=== PATIENT | female | born 1970 ===

== ENCOUNTER 2018-07-25 17:32 | Emergency (ER) | payer BC ==
[2018-07-25 19:00] VITALS: BP 123/68
--- NOTE | 2018-07-25 19:55 | UC ---
Abdominal Pain Female HPI - HPI Summary HPI Summary: Patient presents to urgent care reporting 24 hours of progressive left lower quadrant pain. Patient states yesterday was a dull ache suprapubic to her left side. Patient's itches a little bit of nausea but no vomiting. Patient took Motrin with good improvement of pain. Patient denies dysuria, hematuria. No diarrhea. Patient with decreased appetite but did force herself to eat today. Patient with a history of diverticulitis and states this feels similar. Patient states her last episode of diverticulitis was approximately 18 months ago. Patient incidentally has an appointment tomorrow with her new primary care provider that was previously scheduled. Patient states she waited "2" once before for antibiotics instead/came today. Patient denies any back pain. Patient states this feels similar to her past experience of diverticulitis. Patient's medications reviewed this visit. - History of Current Complaint Chief Complaint: UCAbdominalPain Stated Complaint: NAUSEA/ABD DISCOMFORT Time Seen by Provider: 07/25/18 19:54 Hx Obtained From: Patient Hx Last Menstrual Period: 07/04/18 Onset/Duration: Gradual Onset Pain Intensity: 2 Allergies/Adverse Reactions: Allergies Allergy/AdvReac Type Severity Reaction Status Date / Time ciprofloxacin [From Cipro] Allergy Swelling Verified 07/25/18 19:01 Of Face,Lips,& Throat, hives erythromycin base AdvReac Nausea, Verified 07/25/18 19:01 diarrhea seasonal/cats Allergy Sneezing; Uncoded 07/25/18 19:03 wheezing with cat exposure Home Medications: Home Medications Escitalopram Oxalate [Lexapro] 10 mg PO QPM 07/25/18 [History Confirmed 07/25/18 ] Ibuprofen TAB* [Motrin TAB* 400 MG] 400 mg PO ONCE PRN 07/25/18 [History Confirmed 07/25/18] PMH/Surg Hx/FS Hx/Imm Hx Previously Healthy: Yes GI/ History: Diverticulitis - Surgical History Surgical History: None - Family History Known Family History: Positive: Non-Contributory - Social History Occupation: Employed Full-time Lives: With Family Alcohol Use: Rare Substance Use Type: None Smoking Status (MU): Former Smoker Review of Systems All Other Systems Reviewed And Are Negative: Yes Constitutional: Positive: Fatigue Skin: Positive: Negative Eyes: Positive: Negative Gastrointestinal: Positive: Abdominal Pain, Nausea Genitourinary: Positive: Negative Motor: Positive: Negative Physical Exam - Summary Physical Exam Summary: Vital Signs Reviewed: Yes A+Ox3, no distress, pt easily changes position, climbs onto examination table. Eyes: Conjunctiva Clear, DEBRA. EOM intact and full ENT: Hearing grossly normal TM x 2 clear, mmoist, uvula midline, no exudate, no erythema Neck: Positive: Supple Respiratory: Positive: No respiratory distress, No accessory muscle use + CTA throughout no w/r Cardiovascular: RRR nl s1, s2 no m/r CBT <2 sec abd soft + BS non distended no guarding, no distension + TTP LLQ quad with palp , soft Musculoskeletal Exam: LAMBERT x 4 without difficulty Strength Intact, ROM Intact Neurological: Positive: Alert, + sensation throughout Psychological: Positive: Normal Response To Family Skin: Positive: no rash, no ecchymosis Triage Information Reviewed: Yes Vital Signs: Initial Vital Signs Temp 98.6 F 07/25/18 18:50 Pulse 95 07/25/18 18:50 Resp 22 07/25/18 18:50 BP 123/68 07/25/18 18:50 Pulse Ox 100 07/25/18 18:50 Eye Exam: Normal ENT Exam: Normal Dental Exam: Normal Neck exam: Normal Neck: Positive: 1 Respiratory Exam: Normal Cardiovascular Exam: Normal Abdominal Exam: Normal Musculoskeletal Exam: Normal Neurological Exam: Normal Psychological Exam: Normal Skin Exam: Normal Abd Pain Female Course/Dx - Course Course Of Treatment: Patient presents with progressive left lower quadrant pain over 24 hours. Patient with a little bit of nausea. No fevers no chills no back pain no vaginal he in her symptoms. Patient with a history of diverticulitis and states this feels similar. On exam patient's vital signs are stable. Patient with left lower quadrant pain. Had a long discussion with patient. Patient nontoxic appearing. Patient has had this diagnosed by CT in the past. We will start patient on Bactrim as well as Flagyl this evening. [facility] Patient has appointment scheduled tomorrow morning at 7:30 with her PCP. This was prescheduled is a new provider visit as her previous PCP left. Patient will keep this appointment. Patient instructed if pain increases , fever, vomiting, shaking chills, or any other concern she should report immediately to emergency department. Patient comfortable in agreement with plan. We total her meeting with her PCP tomorrow before picking up prescriptions were sent him. Patient given one-time doses at urgent care [facility]. - Differential Dx/Diagnosis Provider Diagnosis: Diverticulitis Discharge - Sign-Out/Discharge Documenting (check all that apply): Patient Departure All imaging exams completed and their final reports reviewed: No Studies - Discharge Plan Condition: Stable Disposition: HOME Prescriptions: metroNIDAZOLE [Flagyl 500 MG TAB] 500 mg PO TID #30 tab Sulfamethox/Trimethoprim DS* [Bactrim DS 800/160 TAB*] 1 tab PO BID #20 tab Patient Education Materials: Diverticulitis (ED), Diverticulitis Diet (ED) Referrals: Nelda Tellez NP [Primary Care Provider] - Additional Instructions: - stay well hydrated - frequent sips on non-alcoholic beverages. Do NOT drink alcohol 48 hours before and 48 hours after taking Flagyl - Take both antibiotics EXACTLY as prescribed - Okay to alternate ibuprofen (Advil, Motrin) and Tylenol every 3hours for pain or fever. Take with little bit of food - ibuprofen can be irritating to an empty stomach - Keep your appointment tomorrow morning as scheduled. If you develop increased pain, fever, vomiting or ANY other concerns go immediately to the emergency department for further evaluation and treatment - Billing Disposition and Condition Condition: STABLE Disposition: Home
[2018-07-25] MEDS ORDERED: Sulfamethox/Trimethoprim DS 800/160* TAB PO ONE (20:08)
[2018-07-25] MEDS ORDERED: metroNIDAZOLE TAB* 250 MG PO ONE (20:08)
== END 2018-07-25 20:22 | disposition home or self-care (01) ==
LOC: UCCORT 17:32
DX: K57.92 Diverticulitis of intestine, part unspecified, without perforation or abscess without bleeding (principal); Z88.1 Allergy status to other antibiotic agents; Z87.891 Personal history of nicotine dependence
CPT/HCPCS: 81003; 84702; 87086; 99212; A9270-GY; G0463